=== PATIENT | female | born 1980 | race Hispanic/Latino ===

== ENCOUNTER → 2025-01-17 | Day surgery (SDC) | payer OTHER ==
[~2025-01-17] MED LIST: FENTANYL CITRATE/PF 100MCG/2 ML INJ ONE; GLUCAGON FOR INJ 1 MG VIAL ONE; HYOSCYAMINE SULFATE 0.5 MG/ML INJ ONE; LIDOCAINE HCL 2% LOCAL INJ 5 ML SDV VIAL INJ ONE; OMEPRAZOLE40 MG PO; ONDANSETRON HCL INJ 2MG/ML 2ML 2 MG/ML VIAL ONE; PROPOFOL IV EMULSION 10 MG/ML 20 ML VIAL ONE; PROPOFOL IV EMULSION 50 ML IV ONE; SIMETHICONE180 MG PO
[2025-01-17] MEDS: LACTATED RINGER'S 1,000 ML ONE (12:02)
[2025-01-17 13:52] VITALS: TEMP 97.1
[2025-01-17 14:15] VITALS: BP 114/81; PULSE 75; RESP 18; O2SAT 98
== END | disposition home or self-care (01) ==
LOC: OR 11:15 → EDSEX 13:30
PROVIDERS: ATTEND Internal Medicine Gastroenterology
DX: K29.50 Unspecified chronic gastritis without bleeding (principal); K31.89 Other diseases of stomach and duodenum; K21.9 Gastro-esophageal reflux disease without esophagitis; K59.09 Other constipation; K57.30 Diverticulosis of large intestine without perforation or abscess without bleeding; K64.8 Other hemorrhoids; E66.9 Obesity, unspecified; Z71.89 Other specified counseling; Z68.33 Body mass index [BMI] 33.0-33.9, adult; Z71.3 Dietary counseling and surveillance
CPT/HCPCS: 43239; 43251; 45378; J1610; J1980; J2003; J2405; J2470; J2704 ×2; J3010; J7121